=== PATIENT | female | born 1965 | race Caucasian/White ===

== ENCOUNTER 2025-08-09 08:43 | Day surgery (SDC) | payer BC, SELFPAY ==
[2025-08-09 09:02] VITALS: BP 141/100; PULSE 104; RESP 18; TEMP 36.5; O2SAT 97
--- NOTE | 2025-08-09 09:08 | W.ANESPRE ---
General Info Date of Service Date Performed: 08/09/25 Height: 5 ft 5 in Weight: 97.522 kg Body Mass Index (BMI): 35.7 Surgical Procedure: Operation Date: 08/09/25 10:05 Proposed Procedure Side Surgeon jaciel Min MD Meds Allergies and Home Medications Allergies Allergy/AdvReac Type Severity Reaction Status Date / Time naproxen Allergy Severe elevated Verified 08/09/25 09:03 LFTs sulfamethoxazole (From Allergy Severe HIVES Verified 08/09/25 09:03 Bactrim) trimethoprim (From Bactrim) Allergy Severe HIVES Verified 08/09/25 09:03 ibuprofen Allergy Unknown Hives Verified 08/09/25 09:03 Home Medication Medication Instructions Recorded albuterol sulfate 90 mcg/actuation 2 puff inhalation Q6H PRN 07/29/25 aerosol inhaler (Ventolin HFA) azelastine 137 mcg (0.1 %) nasal 2 spray intranasal BID 07/29/25 spray beclomethasone dipropionate 80 1 inh inhalation BID 07/29/25 mcg/actuation HFA breath activated aerosol (Qvar RediHaler) bisacodyl 5 mg tablet,delayed 5 mg PO ONCE #4 tabs 07/29/25 release (Dulcolax (bisacodyl)) bupropion HCl 300 mg 24 hr tablet, 300 mg PO QAM 07/29/25 extended release cholecalciferol (vitamin D3) 1,250 1,250 mcg PO QWEEK 07/29/25 mcg (50,000 unit) capsule cyclobenzaprine 10 mg tablet 10 mg PO HS PRN 07/29/25 meloxicam 7.5 mg tablet 7.5 mg PO DAILY 07/29/25 polyethylene glycol 3350 17 17 g PO ONCE #238 grams 07/29/25 gram/dose oral powder sertraline 100 mg tablet 100 mg PO DAILY 07/29/25 Current Visit Medications: Current Medications Generic Name Dose Route Start Last Admin Trade Name Freq PRN Reason Stop Dose Admin Ringer's Solution 1,000 mls @ 80 mls/hr 08/09/25 06:00 IV 08/09/25 23:59 INFUSION ESHA IV Miscellaneous Supplies 1 each 08/09/25 06:00 Iv Access IV 08/09/25 23:59 DIRECTED ESHA Sodium Chloride 0 ml 08/09/25 06:00 Normal Saline Flush 10 Ml Syr IV 08/09/25 23:59 PRN PRN Sodium Chloride 0 ml 08/09/25 06:00 Normal Saline 10 Ml Vial IJ 08/09/25 23:59 DIRECTED PRN Sterile Water 0 ml 08/09/25 06:00 Water,Injection,Sterile 10 Ml Vial IJ 08/09/25 23:59 DIRECTED PRN PFSH Active Problems Active Problems: Problem Status Onset Code Inflammation of sacroiliac joint Acute M46.1 Medical History Medical History Chiari malformation type I Uterine leiomyoma Endometriosis GERD (gastroesophageal reflux disease) Hypercholesteremia Mixed anxiety and depressive disorder Premenstrual syndrome Allergic rhinitis Pain, joint, multiple sites Surgical History Surgical History Hx of laparoscopy Hx of colonoscopy Tobacco Smoking/Tobacco Use Status: Never Passive smoking exposure: No Alcohol Alcohol Intake: current Alcohol intake frequency: a few times a month Substance Use Substance use: Never Substance use type: does not use Details: Gummies THC Vital Signs and Lab Results Vital Signs Most Recent Vital Signs in EMR: Most Recent Vital Signs Temp Pulse Resp BP Pulse Ox 36.5 C 104 H 18 141/100 H 97 08/09/25 09:02 08/09/25 09:02 08/09/25 09:02 08/09/25 09:02 08/09/25 09:02 Anesthesia Assessment and Plan Anesthesia History Personal History: No History of Anesthesia Complications Family History: No Family History of Anesthesia Complications Exercise Tolerance Exercise Tolerance: Metabolic Equivalents>4 Pertinent Negatives Pertinent Negatives: No Symptoms of GERD, No Major Cardiovascular Symptoms or Complaints, No Major Pulmonary Symptoms or Complaints (asthma- albuterol every couple months ) and No History of CVA/TIA Cardiac & Pulmonary Exam Cardiac Exam: Normal S1/S2 Heart Sounds Pulmonary Exam: Clear Bilateral Breath Sounds, No cough or Cold and Seasonal Allergies (used flonase today) Implantable Cardiac Device Does patient have a Pacemaker or an ICD?: No Airway Exam Known Difficult Airway: No Mallampati Class: 2 Mouth Opening: Normal (> 3cm) Thyromental Distance: Greater than 3 cm Neck Range of Motion: Full ROM Neck Circumference: Normal Teeth Condition: Normal Dentition ASA Classification ASA Score: ASA 2 Emergency Case?: No NPO Status NPO Status: NPO Clears >2 hours, Solids >8 hours Anesthesia Plan Resuscitation Status: Full Code Anesthesia Technique: General Anesthesia Airway Planned: Natural Airway Monitors Used: Standard Monitors
[2025-08-09] MEDS: Lactated Ringers 1,000 ML 80 ML IV (09:10)
[2025-08-09 09:39] VITALS: BMI 35.7
--- NOTE | 2025-08-09 09:45 | W.COLOREPORT ---
Date of service: 08/09/25 Time of Service: 09:45 Colonoscopy Report Procedure Description: PROCEDURES PERFORMED: 1. Colonoscopy with cold forceps polypectomy x2 PREOPERATIVE DIAGNOSIS: Surveillance colonoscopy POSTOPERATIVE DIAGNOSIS: Hyperplastic colorectal polyps, sigmoid diverticulosis, minimal grade 1 internal hemorrhoids SURGEON: Aleksandra Min MD INDICATION FOR PROCEDURE: the patient is a 59-year-old woman whose last colonoscopy was more than 20 years ago. She denies family history of colon cancer. She remembers her colonoscopy was normal back then. She has no symptoms of concern. FINDINGS: Normal terminal ileum. Polyps: In the sigmoid colon and rectum there are a couple of isolated, flat, hyperplastic–appearing polyps. I removed 2 of them with cold forceps technique to confirm benign histology. There was mild diverticular disease isolated to the sigmoid colon. Mild, grade 1 internal hemorrhoids are present at 2 of 3 columns in the rectum. SURVEILLANCE interval/FOLLOW-UP: Assuming pathology confirms hyperplastic histology, then repeat in 10 years. If simple adenomas then 7 to 10 years. SPECIMENS: Yes EBL: Minimal COMPLICATIONS: None QUALITY of prep: Excellent Procedure in detail: The patient gave written consent and was in agreement with the indications, the potential risks as well as the benefits of the procedure. They were taken to the endoscopy suite and laid in the left lateral decubitus position. A timeout was performed and anesthesia was administered which was tolerated well. I started the procedure. Digital rectal and visual examination was performed and grossly within normal limits. A well-lubricated flexible colonoscope was then introduced and passed without any notable difficulty all the way to the cecum identified by the ileocecal valve and the appendiceal orifice. The terminal ileum was briefly, superficially intubated and looked normal. The scope was then slowly withdrawn with the above-noted findings. The patient tolerated the procedure well and was taken to the PACU in hemodynamically stable condition.
--- NOTE | 2025-08-09 09:47 | W.PM.DSUDISC ---
Date of service: 08/09/25 Discharge Plan Disposition Patient Disposition: Home Discharge Details Attending Provider: Luis Miguel Min Primary Care Provider: ESPERANZA PADRON Home Meds and New Rx's Prescriptions: No Action sertraline 100 mg tablet 100 mg PO DAILY meloxicam 7.5 mg tablet 7.5 mg PO DAILY azelastine 137 mcg (0.1 %) spray,non-aerosol 2 spray intranasal BID Rx Instructions: administer into each nostril albuterol sulfate [Ventolin HFA] 90 mcg/actuation HFA aerosol inhaler 2 puff inhalation Q6H PRN bupropion HCl 300 mg tablet extended release 24 hr 300 mg PO QAM cholecalciferol (vitamin D3) 1,250 mcg (50,000 unit) capsule 1,250 mcg PO QWEEK Qvar RediHaler 80 mcg/actuation HFA aerosol breath activated 1 inh inhalation BID cyclobenzaprine 10 mg tablet 10 mg PO HS PRN bisacodyl [Dulcolax (bisacodyl)] 5 mg tablet,delayed release (DR/EC) 5 mg PO ONCE Qty: 4 0RF Rx Instructions: Take per colonoscopy instructions provided by ordering providers office polyethylene glycol 3350 17 gram/dose powder 17 g PO ONCE Qty: 238 0RF Rx Instructions: Take per colonoscopy instructions provided by ordering providers office Discharge Instructions Additional Instructions: FINDINGS: A couple of tiny polyps were found and removed. They are nothing to worry about. This is why we do the colonoscopies. We do test them and based on those test results, we will call you and confirm a follow-up colonoscopy which is likely going to be in 10 years. Separately, you do have some very mild/minimal diverticular disease and hemorrhoid disease. These conditions are both extremely common, benign and nothing needs to be done about them. Stand Alone Forms: Anesthesia Discharge Inst., Colonoscopy Post Instructions, Abel Ni (DSU), Portal Information Activity:: Activity as Tolerated Diet:: As Tolerated Discharge Orders Discharge Orders: Discharge Order (Routine); Ordered 08/09/25 Ordered By: Luis Miguel Min
--- NOTE | 2025-08-09 10:04 | BOWEL_PTH ---
PATIENT: Marcella Cobian LOC: [facility] U#:[id number] AGE/SX: 59/F ROOM: RE08/09/[address]: Luis Miguel Min : 1965 BED: DIS: 08/09/2025 SPEC #: [id number] RECD: 08/09/25 12:41 STATUS: [facility] #: [id number] O[place]: 08/09/25 10:[address]: Luis Miguel Min DEPT: Surgical Specimen RECD BY: Thalia Griffin ENTERED: 08/09/25 12:42 SP TYPE: Bowel OTHR DR: ESPERANZA PADRON MD Tissues: 1 - BIOPSY BOWEL 2 - BIOPSY BOWEL Procedures: GROSS AND MICRO LEVEL 4 Comments: [id number]
[2025-08-09 10:12] VITALS: BP 127/87; PULSE 95; RESP 16; TEMP 36.7; O2SAT 96
--- NOTE | 2025-08-09 10:40 | W.ANESPOSTOP ---
Postoperative Evaluation Date, Time and Location Date Performed: 08/09/25 Time Performed: 10:22 Patient Location: Day Surgery Unit Vital Signs Most Recent Imported Vital Signs: Most Recent Vital Signs Temp Pulse Resp BP Pulse Ox 36.7 C 95 H 16 127/87 96 08/09/25 10:12 08/09/25 10:12 08/09/25 10:12 08/09/25 10:12 08/09/25 10:12 Pain Score Most Recent Pain Score: Most Recent Pain Score Pain Level 0 08/09/25 10:12 Assessment Mental Status: Awake (Alert & Oriented to Patient Baseline) Airway and Respiratory Function: Patent airway with normal (patient baseline) respiratory exam Cardiovascular Function: Hemodynamically Stable Hydration Status: Adequately Hydrated Nausea & Vomiting: No Nausea or Vomiting Pain: Pt. Denies Any Pain Peripheral Nerve Block: Patient did not receive a nerve block
[2025-08-09 10:41] VITALS: BP 116/95; PULSE 86; RESP 18; TEMP 36.7; O2SAT 97
== END 2025-08-09 11:00 | disposition home or self-care (01) ==
PROVIDERS: PCP Family Medicine; Visit Provider Student in an Organized Health Care Education/Training Program
PROC: 0DJD8ZZ Inspection of Lower Intestinal Tract, Via Natural or Artificial Opening Endoscopic (ICD-10-PCS; CPT 45378; principal; 2025-08-09 10:00)
DX: Z12.11 Encounter for screening for malignant neoplasm of colon (principal); K63.5 Polyp of colon; K64.8 Other hemorrhoids; K57.30 Diverticulosis of large intestine without perforation or abscess without bleeding
CPT/HCPCS: 45380; 88305; J2003; J2704